=== PATIENT | male | born 1965 | race Caucasian/White ===

== ENCOUNTER 2016-12-15 22:30 | Emergency (ER) | payer OTHER ==
[~2016-12-15] VITALS: Ht 177.8 cm; Wt 106.3 kg
[~2016-12-15 22:30] MED LIST: Feosol PO; K-Dur PO; LOVENOX40 MG/0.4 SC; OxyCONTIN PO; SENOKOT,SENN1 TABLE1 PO; TERBINAFINE HC250 MG PO; Toprol XL PO; oxyCODONE PO
[2016-12-15] MEDS ORDERED: AMOXICILLIN875 MG PO (23:10)
[2016-12-15 23:22] LABS: INFLUENZA A VIRAL ANTIGEN POSITIVE; INFLUENZA B VIRAL ANTIGEN NEGATIVE
[2016-12-15 23:27] VITALS: BP 119/78
== END 2016-12-15 23:30 | disposition home or self-care (01) ==
LOC: EME 22:30
PROVIDERS: Physician Assistant
DX: H66.91 Otitis media, unspecified, right ear (principal); J11.1 Influenza due to unidentified influenza virus with other respiratory manifestations; M54.2 Cervicalgia; R51 Headache; Z87.891 Personal history of nicotine dependence
CPT/HCPCS: 87502; 99281; 99283